=== PATIENT | female | born 1960 | race Caucasian/White ===

== ENCOUNTER → 2016-10-16 | Outpatient (REF) ==
[~2016-10-16] MED LIST: MULTIVITAMIN1 TA1 PO; PREDNISONE20 MG PO
== END ==
LOC: WSOH 10:54
DX: Z23 Encounter for immunization (principal)

== ENCOUNTER → 2017-04-03 | Outpatient (REF) | LOC: WSOH 18:00 | DX: Z02.89 Encounter for other administrative examinations (principal) ==

== ENCOUNTER → 2019-09-16 | Outpatient (CLI) | payer BC ==
[2019-09-16 17:44] LABS: BASO % 0.5 % (0.0-2.0); EOS # 0.2 (0.0-0.7); EOS % 2.3 % (0-4.0); GRAN # 4.5 (1.4-6.5); GRAN % 61.9 % (42.2-75.2); HEMATOCRIT 43.5 % (37.0-47.0); HEMOGLOBIN 13.7 g/dl (12.5-16.0); LYMPH # 2.2 (1.2-3.4); LYMPH % 30.2 % (20.0-51.0); MEAN CELL VOLUME 93 fl (80.0-100.0); MEAN CORPUSCULAR HEMOGLOBIN 29 pg (27.0-31.0); MEAN CORPUSCULAR HGB CONC 32 g/dl (33.0-37.0); MEAN PLATELET VOLUME 12.2 fl (7.4-10.4); MONO # 0.4 (0.1-0.6); MONO % 4.8 % (1.7-9.3); PLATELET COUNT 256 K/mm3 (130-400); REDCELL DISTRIBUTION WIDTH-CV 13.9 % (11.5-14.5)
[2019-09-16 17:52] LABS: ALBUMIN 4.1 gm/dL (3.5-5.0); BILIRUBIN,TOTAL 0.7 mg/dL (0.0-1.0); CALCIUM 9.6 mg/dL (8.4-10.2); CREATININE, serum 0.76 (0.52-1.25); MAGNESIUM 2.2 mg/dL (1.6-2.3); POTASSIUM 3.8 mmol/L (3.4-5.0); TOTAL PROTEIN 6.8 gm/dL (6.4-8.2)
[2019-09-16 18:22] LABS: TSH w REFLEX 1.62 uIU/mL (0.465-4.680)
== END ==
LOC: ZCOL.LAB 17:01
PROVIDERS: Internal Medicine
DX: R42 Dizziness and giddiness (principal)

== ENCOUNTER → 2020-02-01 | Outpatient (CLI) | payer SELFPAY | LOC: ZCOL.LAB 11:00 | DX: Z20.828 Contact with and (suspected) exposure to other viral communicable diseases (principal) ==

== ENCOUNTER 2020-10-21 00:58 | Inpatient (IN) | payer OTHER ==
[~2020-10-21] VITALS: Ht 157.5 cm; Wt 75.7 kg
[2020-10-21] VITALS (527 sets, daily range): BP systolic 116–163; BP diastolic 9–103; PULSE 85–117; TEMP 97.3–98.9; O2SAT 89–100
[2020-10-21 01:20] LABS: HEMATOCRIT 48.2 % (37.0-47.0); HEMOGLOBIN 15.2 g/dl (12.5-16.0); MEAN CELL VOLUME 91 fl (80.0-100.0); MEAN CORPUSCULAR HEMOGLOBIN 29 pg (27.0-31.0); MEAN CORPUSCULAR HGB CONC 32 g/dl (33.0-37.0); MEAN PLATELET VOLUME 11.5 fl (7.4-10.4); PLATELET COUNT 316 K/mm3 (130-400); RED BLOOD COUNT 5.28 M/mm3 (4.10-5.30); REDCELL DISTRIBUTION WIDTH-CV 13.7 % (11.5-14.5)
[2020-10-21 01:29] LABS: ALANINE AMINOTRANSFERASE 29 U/L (4-34); ALBUMIN 4.8 gm/dL (3.5-5.0); ALCOHOL(ethanol),MEDICAL 134 mg/dL; ALKALINE PHOSPHATASE 121 U/L (50-136); ANION GAP 17 mmol/L (7-16); AST,SGOT 26 U/L (15-37); BILIRUBIN,TOTAL 0.5 mg/dL (0.0-1.0); BLOOD UREA NITROGEN 13 mg/dL (7-17); CALCIUM 9.5 mg/dL (8.4-10.2); CARBON DIOXIDE 20 mmol/L (22-30); CHLORIDE 108 mmol/L (98-107); CREATININE, serum 0.72 (0.52-1.25); GLUCOSE 187 mg/dL (74-106); SODIUM 145 mmol/L (137-145); TOTAL PROTEIN 8.8 gm/dL (6.4-8.2)
[2020-10-21 01:31] LABS: ACETAMINOPHEN < 10 ug/mL (10-30); SALICYLATE < 1.0 mg/dL
[2020-10-21 01:33] LABS: BAND 2 % (0-10); LYMPHOCYTE 44 % (20.0-51.0); METAMYELOCYTE 1 % (0-0); NEUTROPHILS 49 % (42.0-75.2); PLATELET ESTIMATE NORMAL (NORMAL)
[2020-10-21 01:42] LABS: COLLECTION METHOD CATHETER
[2020-10-21 01:52] LABS: PH 7 (5-8); SQUAMOUS EPITHELIAL None Seen /hpf; URINE APPEARANCE Clear; URINE BACTERIA Rare /hpf; URINE BILIRUBIN Negative (NEGATIVE); URINE BLOOD Negative (NEGATIVE); URINE COLOR Colorless; URINE GLUCOSE Negative (NEGATIVE); URINE KETONE Negative (NEGATIVE); URINE LEUKOCYTE ESTERASE Negative (NEGATIVE); URINE NITRATE Negative (NEGATIVE); URINE PROTEIN(semi-quant) Negative (NEGATIVE); URINE RBC 0-2 /hpf; URINE UROBILINOGEN Negative (NEGATIVE)
[2020-10-21 01:54] LABS: TRICYCLIC ANTIDEPRESS URINE NEGATIVE
--- NOTE | 2020-10-21 03:55 | NUR ---
Received genera; report from CLAUDIA Reich in the Emergency department.
--- NOTE | 2020-10-21 04:04 | NUR ---
Patient arrived to unit via stretcher from ED with Radha RN, Damir, RN and Yamile, RT. Patient ventilated with vent settings in AC mode with 7.5ET tube at 21 at the lip with tidal volume of 4000, peep of 5, fio2 of 30 and rate of 18. VSS. Patient arrived to unit on propofol gtt, with NS, magnesium and potassium infusing. Fentanyl gtt ordered and started once patient arrived to unit. Patient withdraws from pains but able to open eyes spontaneously but unable to follow commands. Will admit patient to ICU and resume care at this time.
[2020-10-21 05:04] LABS: BASO % 0.2 % (0.0-2.0); EOS % 0.2 % (0-4.0); GRAN # 10.6 (1.4-6.5); GRAN % 86.2 % (42.2-75.2); HEMATOCRIT 41.4 % (37.0-47.0); LYMPH # 0.9 (1.2-3.4); LYMPH % 7.6 % (20.0-51.0); MEAN CELL VOLUME 95 fl (80.0-100.0); MEAN CORPUSCULAR HEMOGLOBIN 30 pg (27.0-31.0); MEAN CORPUSCULAR HGB CONC 31 g/dl (33.0-37.0); MEAN PLATELET VOLUME 11.6 fl (7.4-10.4); MONO # 0.7 (0.1-0.6); MONO % 5.5 % (1.7-9.3); PLATELET COUNT 238 K/mm3 (130-400); RED BLOOD COUNT 4.37 M/mm3 (4.10-5.30); REDCELL DISTRIBUTION WIDTH-CV 13.8 % (11.5-14.5)
[2020-10-21 05:05] LABS: HEMOGLOBIN 12.9 g/dl (12.5-16.0)
[2020-10-21 05:14] LABS: ALBUMIN 3.8 gm/dL (3.5-5.0); BILIRUBIN,TOTAL 0.7 mg/dL (0.0-1.0); CALCIUM 7.5 mg/dL (8.4-10.2); CREATININE, serum 0.67 (0.52-1.25); MAGNESIUM 2.1 mg/dL (1.6-2.3); POTASSIUM 5.4 mmol/L (3.4-5.0); TOTAL PROTEIN 6.6 gm/dL (6.4-8.2)
[2020-10-21 05:31] LABS: ARTERIAL BLD GAS O2 SATURATION 98.6 % (92-100); ARTERIAL BLD GAS TCO2 CT 18.7; ARTERIAL BLOOD GAS BASE EXCESS -6.6 (-2-2); ARTERIAL BLOOD GAS HCO3 17.7 meq/L (22-26); ARTERIAL BLOOD GAS PCO2 31.8 mmHg (35-45); ARTERIAL BLOOD GAS pH 7.36 (7.35-7.45)
[2020-10-21 05:32] LABS: ARTERIAL BLOOD GAS PO2 125.9 mmHg (80-100)
--- NOTE | 2020-10-21 05:50 | NUR ---
Called SARAH Duff and notified of Potassium level of 5.4. Nurse stated that lab was drawn from same arm that IV potassium was infusing too and that IV potassium was placed on standby during lab draw. PA stated to keep potassium on standby and recheck potassium level again at 1100. PA placed orders for potassium recheck included with BMP at 1100.
--- NOTE | 2020-10-21 06:01 | NUR ---
Unable to assess suicide risk assessment d/t patient being on ventilator. Will reassess when able.
--- NOTE | 2020-10-21 06:53 | NUR ---
Only belongings patient arrived to unit with was a bag of medication and receipts from moe chen and david that patient had bought medications of suspected overdose from. Medications and receipts bagged up and given to powerhouse mechanic apprentice to lock up. No other belongings arrived with patient to unit.
--- NOTE | 2020-10-21 07:21 | NUR ---
Sedation vacation not attempted. Patient on low dose sedation and able to spontaneously open eyes but unable to follow commands. Patient admitted to unit at 0404.
--- NOTE | 2020-10-21 10:31 | NUR ---
Pt extubated at this time per MD orders. Bilateral breath sounds present, no stridor noted. Currently on room air.
[2020-10-21 11:29] LABS: CALCIUM 8.1 mg/dL (8.4-10.2); CREATININE, serum 0.6 (0.52-1.25); POTASSIUM 3.8 mmol/L (3.4-5.0)
--- NOTE | 2020-10-21 13:26 | NUR ---
Patient recently extubated, so SALLY contacted Ed (P# [phone]) for intake evaluation. Ed reported that he and his live together in [place]. Ed does not believe that Nakia has a DPOA on file; however, he was certain that she has insurance. Ed will be searching for her insurance card today. Please check 10/22 to verify. Patient does not have regular PCP per Ed, who stated that she saw a doctor once, but he did not know who it was. She uses [facility] (has used both [facility] and [facility]) for medications. Patient is normally independent with ADLs and does not use DME. Patient will receive psychiatric screening when medically stable and make a plan from there. Ed would like SW to update him tomorrow with any changes on our end. He is concerned that Nakia won't want to come home with him, because the couple had an argument preceding her suicide attempt. Social work will continue to follow.
--- NOTE | 2020-10-21 19:42 | NUR ---
Report received from CLAUDIA Duff. ALL medications verified and all questions answered. Patient resting in bed. No concerns or complaints noted at this time. VSS. Will resume care at this time.
--- NOTE | 2020-10-21 23:00 | NUR ---
Yamile, RT placed nasopharyngeal airway to assisst with suctioning of patient as patient has increased amount of secretions and fights staff when attempting to suction orally. Patient Spo2 above 95% on 3L via oxymask. Lung sounds coarse in all gonzalez. Patient sounds like he is gurgling on secretions. Patient needing to be continually suctioned to help with secretions.
[2020-10-22] VITALS (416 sets, daily range): BP systolic 106–143; BP diastolic 64–90; PULSE 78–95; TEMP 98–98.9; O2SAT 82–100
--- NOTE | 2020-10-22 00:26 | NUR ---
Patient becoming agitated and attempting to pull off oxymask and SpO2 dropping into the 70s as well as attempting to pull off monitor chords. Nurse placed a mitt on the patients right hand to keep from pulling at lines and oxymask.
[2020-10-22 06:21] LABS: BASO # 0.1 (0.0-0.2); BASO % 0.4 % (0.0-2.0); EOS % 0.3 % (0-4.0); GRAN # 10.6 (1.4-6.5); GRAN % 79.6 % (42.2-75.2); HEMATOCRIT 41.3 % (37.0-47.0); HEMOGLOBIN 12.8 g/dl (12.5-16.0); LYMPH # 1.9 (1.2-3.4); LYMPH % 14.1 % (20.0-51.0); MEAN CELL VOLUME 95 fl (80.0-100.0); MEAN CORPUSCULAR HEMOGLOBIN 30 pg (27.0-31.0); MEAN CORPUSCULAR HGB CONC 31 g/dl (33.0-37.0); MEAN PLATELET VOLUME 11.6 fl (7.4-10.4); MONO # 0.7 (0.1-0.6); MONO % 5.2 % (1.7-9.3); PLATELET COUNT 241 K/mm3 (130-400); RED BLOOD COUNT 4.33 M/mm3 (4.10-5.30); REDCELL DISTRIBUTION WIDTH-CV 14.6 % (11.5-14.5)
[2020-10-22 06:33] LABS: ALBUMIN 3.6 gm/dL (3.5-5.0); BILIRUBIN,TOTAL 1.6 mg/dL (0.0-1.0); CALCIUM 8.1 mg/dL (8.4-10.2); CREATININE, serum 0.65 (0.52-1.25); MAGNESIUM 2.4 mg/dL (1.6-2.3); POTASSIUM 3.6 mmol/L (3.4-5.0); TOTAL PROTEIN 6.6 gm/dL (6.4-8.2)
--- NOTE | 2020-10-22 07:05 | NUR ---
RECEIVED REPORT FROM CLAUDIA ABRAHAM. PT RESTING EASILY. AROUSES TO VERBAL STIMULI. VSS. FC PATENT AND DRAINING TO GRAVITY. CALL LIGHT WITHIN REACH.
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
--- NOTE | 2020-10-22 11:40 | NUR ---
DR BLAKE AT BEDSIDE FOR ASSESSMENT. DISCUSSED POC WITH PHYSICIAN. PHYSICIAN STATES OK TO HAVE PAWBERNARDINOE PERFORM SCREEN. PHYSICIAN REQUESTS FOR PT/OT EVAL. NOTIFIED PHYSICIAN OF INTERACTION WITH PT THIS AM.
--- NOTE | 2020-10-22 11:41 | NUR ---
Medical Affairs Director staffed with the patient's nurse to set up a [facility] for the patient screen due to suicide attempt. SALLY faxed clinical information to [facility]. SALLY attended clinical rounds with the team. The patient is medically cleared for screen. SALLY contacted Prisca from [facility] of the patient's medical status. Awaiting screen time.
--- NOTE | 2020-10-22 14:58 | NUR ---
Analy with [facility] reports the patient is cleared for discharge with a safety plan in place. Analy contacted the patient's daughter, Irvin. Irvin will medicinal plant picker the patient and take her to [place]. Per nurse, the patient will stay with her sister Radha in [place]. SALLY met with the patient to provide contact information for [facility]. The patient inquired about her personal items. Per nurse the personal items are locked up and the patient will get them at discharge.
--- NOTE | 2020-10-22 16:22 | NUR ---
NOTIFIED DR BLAKE OF [facility] SCREEN DONE AND SAFETY PLAN IS PT TO DC ONCE MEDICALLY CLEARED BY HIM WITH DAUGHTER RACHEAL. PHYSICIAN STATES TO CHANGE OBSERVATION STATUS TO LOWEST RISK AND WILL DC TOMORROW AFTER ONE MORE NIGHT OF OBSERVATION. PT AND DAUGHTER MADE AWARE OF POC. HOT DIP GALVANIZER AWARE.
--- NOTE | 2020-10-22 19:47 | NUR ---
Received report from CLAUDIA Capellan. All questions answered and all medications verified. VSS. Patient resting in bed. Will resume care at this time.
[2020-10-23] VITALS (175 sets, daily range): BP systolic 117–1173; BP diastolic 73–82; PULSE 70–91; TEMP 98–98.4; O2SAT 87–100
[2020-10-23 06:20] LABS: BASO % 0.4 % (0.0-2.0); EOS # 0.2 (0.0-0.7); EOS % 2.2 % (0-4.0); GRAN # 5.4 (1.4-6.5); GRAN % 69.6 % (42.2-75.2); HEMATOCRIT 41.3 % (37.0-47.0); HEMOGLOBIN 13.3 g/dl (12.5-16.0); LYMPH # 1.7 (1.2-3.4); LYMPH % 21.8 % (20.0-51.0); MEAN CELL VOLUME 91 fl (80.0-100.0); MEAN CORPUSCULAR HEMOGLOBIN 29 pg (27.0-31.0); MEAN CORPUSCULAR HGB CONC 32 g/dl (33.0-37.0); MEAN PLATELET VOLUME 11.5 fl (7.4-10.4); MONO # 0.4 (0.1-0.6); MONO % 5.6 % (1.7-9.3); PLATELET COUNT 218 K/mm3 (130-400); RED BLOOD COUNT 4.54 M/mm3 (4.10-5.30); REDCELL DISTRIBUTION WIDTH-CV 14.2 % (11.5-14.5)
[2020-10-23 06:30] LABS: CALCIUM 8.2 mg/dL (8.4-10.2); CREATININE, serum 0.72 (0.52-1.25); POTASSIUM 3.9 mmol/L (3.4-5.0)
--- NOTE | 2020-10-23 07:00 | NUR ---
RECEIVED REPORT FROM CLAUDIA ABRAHAM. PT SLEEPING ON RA. VSS. CALL LIGHT WITHIN REACH.
--- NOTE | 2020-10-23 10:46 | NUR ---
Initial visit; Patient appeared receptive to Melt House Drag Operator visit and shared she has a Tunnel Elastic Operator Chainstitch whom she will call when she is discharged. She spoke of her plans to go to a group home for single women and what is happening in her life that caused her to consider taking her own life. She said she had all she could take from her . Melt House Drag Operator offered prayer. She asked that Melt House Drag Operator just keep her in her prayers.
--- NOTE | 2020-10-23 11:27 | NUR ---
Die Tripper staffed with the patient's nurse regarding the discharge plan. The patient now plans to go to a local hot versus going to [place] with her sister. SALLY addresssed the patient's safety at the hotel. She reports she will feel safe there. SALLY inquired about the possiblity of her showing up at the hotel. The patient states, "I know how to dial 911." The patient was interested in having a police escort to the home in order to retrieve personal items. SALLY contacted the [facility] and spoke to Liliam on speaker phone. Liliam states the patient can call them when ever she is ready to retrieve her items. The patient would like to retrieve her items on Thursday, 10/24. Liilam informed the patient to call when ready. The patient inquired about the possiblity of contacting her to ask if he was willing to bring the items to the patient. SALLY attempted to contact Ed. He did not answer and the mailbox was full. The patient's daughter, Irvin is buying the patient some items she is needing such as clothes. The patient declined the Crisis Center at this time. SALLY collaborated the above information with the patient's nurse.
--- NOTE | 2020-10-23 12:30 | NUR ---
ATTEMPTED TO SPEAK TO PT AND DAUGHTER RACHEAL ABOUT OBTAINING A PCP OR PSYCHIATRIST APPT [facility] [address] DA[address] DC PER DR BLAKE'S REQUEST. PT STATES "I WILL NO TGO TO AN APPT. I WILL NOT TAKE ANY ANTI DEPRESSIVE OR ANTI ANXEITY MEDICATIONS. I WILL BE FINE. I JUST WANT TO GET OUT TO GET MY AFFAIRS IN ORDER AND GO TO [place] TO BE WITH MY SISTER." UPDATED PHYSICIAN ON WHAT PT SAID AND THAT RAMOS DOES PLAN TO CALL PT THIS AFTERNOON TO CHECK ON HER. DR BLAKE STATES WE CANNOT HOLD HER AND TO MOVE FORWARD WITH DC.
--- NOTE | 2020-10-23 12:39 | NUR ---
ANAMARIA ORELLANA AT [facility] RACHEAL'S NUMBER BACK NUMBER TO REACH PT FOR FOLLOW UP PHONE CALL THIS AFTERNOON.
--- NOTE | 2020-10-23 13:27 | NUR ---
The patient to discharge to a hotel this day. The patient's daughter, Irvin to provide transporation. Irvin has assisted the patient and is her visitor. Block Piler staffed with the patient's nurse regarding follow up appointments. Per EMR the PCP is SARAH López. The patient's nurse contacted the office and they report that the patient told the office that she no longer wanted to see [facility] and they put her account into inactive status. Therefore, they could not make an appointment since she is no longer being seen there. SALLY contacted [facility] regarding follow up. The patient has a follow up telehealth appointment with [facility] at discharge. SALLY met with the patient to discuss PCP. The patient was not intersted in setting up a new PCP since she will be leaving the state she states there is "no use in it." SW inquired about when she plans on leaving the state (to [place]). The patient states she has to turn off services (such as electric) to her house since they are in her name. She needs personal papers from her home (which she will retrieve on 10/24 with assistance from Stacie Rodriguez). Once she does these things she will leave the state. Her vehicle is also at the home. SALLY collaborated the above information with the patient.
== END 2020-10-23 12:54 | disposition home or self-care (01) | DRG 917 ==
LOC: COL.ER 00:58 → ICU 02:10 → COL.ER 03:55 → ICU 10-22 12:36
PROVIDERS: Emergency Medicine; Student in an Organized Health Care Education/Training Program; ADMIT Internal Medicine
PROC: 0BH17EZ Insertion of Endotracheal Airway into Trachea, Via Natural or Artificial Opening (ICD-10-PCS; principal; 2020-10-21)
PROC: 5A1935Z Respiratory Ventilation, Less than 24 Consecutive Hours (ICD-10-PCS; 2020-10-21)
DX: T45.0X2A Poisoning by antiallergic and antiemetic drugs, intentional self-harm, initial encounter (principal); G92 Toxic encephalopathy; E87.2 Acidosis; E87.6 Hypokalemia; F41.9 Anxiety disorder, unspecified; Z20.822 Contact with and (suspected) exposure to COVID-19; I95.9 Hypotension, unspecified; Z98.51 Tubal ligation status; Z91.5 Personal history of self-harm
CPT/HCPCS: 99223-AI; 99232-AI; 99233-AI; 99239; A4314; J0330; J1650; J2310; J2405; J2704; J3010; J3475; J3480; J7030